=== PATIENT | female | born 1985 | race African-American/Black ===

== ENCOUNTER 2016-10-15 06:38 | Inpatient (IN) ==
[2016-10-15] MEDS ORDERED: BUTORPHANOL 2 MG/ML VIAL IV PRN (07:09)
[2016-10-15] MEDS ORDERED: ONDANSETRON 4 MG/2 ML VIAL IV PRN ×2 (07:09→10:13)
[2016-10-15] MEDS ORDERED: MEPERIDINE 50 MG/1 ML VIAL IV PRN (07:09)
[2016-10-15] MEDS ORDERED: CITRIC ACID/SODIUM CITRATE 30 ML UDCUP PO ONE (07:12)
[2016-10-15] MEDS ORDERED: LACTATED RINGERS 1,000 ML IV ONE (07:12)
[2016-10-15] MEDS ORDERED: fentaNYL 2 MCG/ROPIV 0.2% EPID 150 ML EPIDURAL SCH (07:12)
[2016-10-15] MEDS ORDERED: hydrOXYzine HCL 25 MG/1 ML VIAL IM PRN (07:12)
[2016-10-15] MEDS ORDERED: diphenhydrAMINE 50 MG/1 ML VIAL IV PRN ×2 (07:12)
[2016-10-15] MEDS ORDERED: ePHEDrine 50 MG/ML AMP IV PRN (07:12)
[2016-10-15] MEDS ORDERED: PROMETHAZINE 25 MG/1 ML VIAL IM ONE (07:12)
[2016-10-15] MEDS ORDERED: ONDANSETRON 4 MG/2 ML VIAL IV ONE (07:12)
[2016-10-15] MEDS ORDERED: FAMOTIDINE 20 MG/2 ML VIAL IV ONE (07:12)
[2016-10-15] MEDS ORDERED: OXYTOCIN/LR 20 UNIT/1,000 ML BAG IV SCH (07:30)
[2016-10-15] MEDS ORDERED: LACTATED RINGERS 1,000 ML IV SCH (07:30)
[2016-10-15 07:44] LABS: Basophils % 0.2 % (0.0-0.8); Eosinophils # 0.1 10*3/uL (0.0-0.87); Eosinophils % 0.8 % (0.00-10.9); Hematocrit 30.6 VOL% (35.7-47.0); Hemoglobin 9.4 GM/DL (12.0-16.0); Immature Granulocytes Absolute 0.13 #; Lymphocytes # 1.6 10*3/uL (1.4-4.0); Lymphocytes % 12.5 % (21.3-54.2); Mean Corpuscular HGB Conc 30.7 GM/DL (32-36); Mean Corpuscular Hemoglobin 29 PG (27-34); Mean Corpuscular Volume 95.3 FL (87-102); Mean Platelet Volume 11.6 FL (9.6-12.0); Monocytes # 0.9 10*3/uL (0.11-0.8); Monocytes % 7.3 % (1.7-12.7); NRBC # 0.02 10*3/uL; Neutrophils # 9.8 10*3/uL (1.4-7.4); Neutrophils % 78.2 % (38.7-73.9); Platelet Count 209 T/CUMM (130-400); Red Blood Count 3.21 MC/CUMM (3.8-5.5); Red Cell Distribution Width 14.1 % (9.3-17.3); White Blood Count 12.5 T/CUMM (4-12)
[2016-10-15 08:02] LABS: Alanine Aminotransferase 12 U/L (13-56); Albumin 2.8 G/DL (3.4-5.0); Alkaline Phosphatase 178 U/L (45-117); Aspartate Amino Transferase 22 U/L (0-37); Bilirubin,Total < 0.39 MG/DL (0.2-1.0); Blood Urea Nitrogen 8 MG/DL (7-18); Calcium 8.3 MG/DL (8.5-10.1); Glucose 94 MG/DL (74-106); Potassium 4.1 MMOL/L (3.5-5.1); Sodium 136 MMOL/L (136-145); Total Protein 6.7 G/DL (6.4-8.3); Uric Acid 5.7 MG/DL (2.6-6.0)
--- NOTE | 2016-10-15 10:06 | OB/GYN History & Physical ---
History of Present Illness Chief complaint: active labor, EDC is 10/23/2016 History of present illness: Ms. Michele is a 30 year old female 38+ weeks gestation who presents with active labor. Patient was examined and found to be 78 cm with a bulging bag of water at a -1-0 station. heart tones initially were well within normal limits category 1. Patient received an epidural anesthetic shortly after admission and subsequently was completely dilated. Patient was on laid back onto the bed after the epidural, the heart tones then demonstrated bradycardia, with accelerations. He was prepared for vaginal delivery with the possibility for section because of prolonged decelerations at for approximately 8 minutes. Was placed on her left side O2 was given her legs were placed in the stirrups. She was prepped for a vaginal delivery. Accelerations were noted occasionally as well as the [id number] and long-term variability was reassuring Home Medications Medication Instructions Recorded Confirmed Type No Known Home Medications [No 10/15/16 10/15/16 History Known Home Medications] Allergies Allergy/AdvReac Type Severity Reaction Status Date / Time No Known Allergies Allergy Verified 10/15/16 07:07 Medical,Surgical,& Family Hx - Medical History Reproductive: History of: Reproductive Problems (IUI ) - Surgical History Thoracic Surgeries: Surgical HX of;: Kidney (Renal Surgery) (DONATED AT KIDNEY, PT ONLY HAS ONE NOW) Reproductive Surgeries: Patient denies;: Gynecologic Surgery - Family History Family History: Reports;: Additional Family History (MOTHER WITH KIDNEY DISEASE) Denies;: Family Anesthesia Reaction, Family Cancer, Family Diabetes, Family Heart Disease, Family Hematology, Family Hypertension, Family Psychiatric Problems, Family Stroke - Social History Smoking Status: Never smoker Frequency of Alcohol Use: None 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 - Head Head exam: Present: normal inspection - Eye Eye exam: Present: EOMI Pupils: Present: VERENA - ENT ENT exam: Present: normal exam - Neck Neck exam: Present: normal inspection - Respiratory Respiratory exam: Present: clear to auscultation bilaterally - Breast Breasts: as per HPI Menstruation: as per HPI - Cardiovascular Cardiovascular exam: Present: regular rate and rhythm - GI/Abdominal GI/Abdominal exam: Present: normal bowel sounds - Extremities Exam Extremities exam: Present: normal inspection - Back Exam Back exam: Present: normal inspection - Neurological Exam Neurological exam: Present: alert, oriented X3 - Psychiatric Psychiatric exam: Present: normal mood, anxious - Skin Skin exam: Present: normal color Assessment and Plan (1) Active labor at term Status: Acute Assessment and plan: Completely dilated, active labor, anticipate Current Visit: Yes Results - Labs CBC & BMP: 10/15/16 07:35 10/15/16 07:35
--- NOTE | 2016-10-15 10:12 | Event Note ---
Patient admitted on October 15 in active labor and os 700 hours On admission cervix was 78 cm dilated bulging bag of water Epidural anesthetic was given IV fluids external monitoring O2 was also administered heart tones initially prior to her epidural was category 1 Patient was completely dilated at 932, and demonstrated bradycardia with notable beat to beat variability still existin Spontaneous rupture membranes clear fluid Vertex presentation, +2 station Stage II LML episiotomy Vacuum extraction times one Nuchal cord noted after delivery of the head Cord noted around the right arm and right leg in the body Cord gas was obtained, cord blood was obtained weight was 7 lbs. 12 oz., Apgars were 9 at 1 minute 9 at 5 minutes, delivery was 945, female Stage III Placenta was delivered manually 3 cord vessels noted Blood loss was less than 300 mL Episiotomy was repaired without any complications 2-0 Vicryl, 3-0 chromic to repair the episiotomy.
[2016-10-15] MEDS ORDERED: IBUPROFEN 800 MG TABLET PO PRN (10:13)
[2016-10-15] MEDS ORDERED: WITCH HAZEL PADS 100/JAR TOP PRN (10:13)
[2016-10-15] MEDS ORDERED: ACETAMINOPHEN 325 MG TABLET PO PRN (10:13)
[2016-10-15] MEDS ORDERED: BISACODYL 10 MG SUPP RECTAL PRN (10:13)
[2016-10-15] MEDS ORDERED: oxyCODONE/ACETAMINOPHEN 5-325 MG TABLET PO PRN ×2 (10:13)
[2016-10-15] MEDS ORDERED: MEASLES/MUMPS/RUBELLA VACCINE 0.5 ML VIAL SUBCUT ONE (10:13)
[2016-10-15] MEDS ORDERED: RHO(D) IMMUNE GLOBULIN 300 MCG SYRINGE IM ONE (10:13)
[2016-10-15] MEDS ORDERED: DIPH/TET/ACEL PERT BOOSTER VACCINE 0.5 ML VIAL IM ONE (10:13)
[2016-10-15] MEDS ORDERED: HYDROCORTISONE 2.5% RECTAL CREAM 30 GM TUBE TOP PRN (10:13)
[2016-10-15] MEDS ORDERED: OXYTOCIN/LR 20 UNIT/1,000 ML BAG IV ONE (10:13)
[2016-10-15] MEDS ORDERED: LANOLIN 50% CREAM 0.3 OZ TUBE TOP PRN (10:13)
[2016-10-15] MEDS ORDERED: BENZOCAINE 20%/MENTHOL 0.5% SPRAY 56 GM CAN TOP PRN (10:13)
[2016-10-15 10:30] LABS: Apearance,Urine CLEAR (Clear); Bacteria,Urine Occasional /HPF (Few); Bilirubin,Urine Negative (Negative); Blood, Urine Negative (Negative); Glucose,Urine (UA) Negative (Negative); Ketones,Urine Negative (Negative); Mucus,Urine Occasional /LPF (Occasional); Nitrite,Urine Negative (Negative); Protein,Urine 30 MG/DL; RBC,Urine <1 /HPF (0-4); Squamous Epithelial Cell,Urine Occasional /HPF (0-10); Urine Color Yellow (Yellow); Urine Specific Gravity 1.009 (1.001-1.035); Urine Urobilinogen < 2.0 EU/DL (0.2-1.0); WBC,Urine 1 /HPF (0-6)
[2016-10-15] MEDS: DOCUSATE SODIUM 100 MG CAPSULE PO SCH (21:09)
[2016-10-16 05:53] LABS: Basophils % 0.2 % (0.0-0.8); Eosinophils # 0.1 10*3/uL (0.0-0.87); Eosinophils % 0.5 % (0.00-10.9); Hematocrit 24.9 VOL% (35.7-47.0); Hemoglobin 7.6 GM/DL (12.0-16.0); Immature Granulocytes % 0.8 %; Lymphocytes # 2.4 10*3/uL (1.4-4.0); Lymphocytes % 19.5 % (21.3-54.2); Mean Corpuscular HGB Conc 30.5 GM/DL (32-36); Mean Corpuscular Hemoglobin 29 PG (27-34); Mean Corpuscular Volume 95.8 FL (87-102); Mean Platelet Volume 11.7 FL (9.6-12.0); Monocytes # 1.3 10*3/uL (0.11-0.8); Monocytes % 10.5 % (1.7-12.7); Neutrophils # 8.3 10*3/uL (1.4-7.4); Neutrophils % 68.5 % (38.7-73.9); Platelet Count 182 T/CUMM (130-400); Red Cell Distribution Width 14.1 % (9.3-17.3); White Blood Count 12.1 T/CUMM (4-12)
--- NOTE | 2016-10-16 08:04 | Progress Note ---
Assessment and Plan (1) Active labor at term Status: Acute Assessment and plan: Completely dilated, active labor, anticipate Current Visit: Yes Family Medicine PN Sub Interval history: Postop day #1 Patient blood count is slightly diminished, no evidence of shortness of breath chest pain or palpitations or dizziness. Bleeding is minimal Have discussed with the patient the need for a unit of packed RBCs secondary to her low blood count. Presently she is asymptomatic. We'll continue to observe this patient start her on iron therapy and Colace. If in fact does not relieve her symptoms we'll recommend transfusing. Wrist and benefits were thoroughly discussed with this patient she is in full agreement Exam (Progress Note) - Constitutional Vitals: Period Temp Pulse Resp BP Sys/Crews Pulse Ox Last 24 Hr 98 F-98.6 F 90-119 18-20 123-157/64-94 95-100 Results - Labs CBC & BMP: 10/16/16 05:39 10/15/16 07:35 Quality Measures - VTE Contraindication to Pharmacological VTE Prophylaxis: Clinical assessment deems Pt at low risk, no prophalaxis needed
[2016-10-16] MEDS: DOCUSATE SODIUM 100 MG CAPSULE PO SCH ×2 (08:45→20:30)
[2016-10-16] MEDS: FERROUS SULFATE 325 MG TABLET PO SCH ×3 (08:45→20:30)
--- NOTE | 2016-10-16 12:08 | Anesthesia ---
Anesthesia Post OP - Post Ansesthetic Evaluation Patient seen in post op: Yes Resp: within normal limits CV: within normal limits Mental: within normal limits Temp: within normal limits [id number]: within normal limits Nausea and Vomiting: within normal limits Pain: within normal limits
[2016-10-17 08:33] VITALS: BP 132/78
--- NOTE | 2016-10-17 09:41 | Discharge Summary ---
Hospital Course - Hospital Course Hospital Course: Ms. Michele presented to the labor department in active labor. She subsequently delivered a viable with no complications. She has followed a normal course and she has done well. Her vital signs and lab values are stable. She is voiding without difficulty. Her bleeding is minimal with no odor. She denies any pain or discomfort in her legs. She is bonding well with her . She will be discharged home with prescriptions for pain and follow- up appointment in our office. Specialty Discharge - Follow Up or Referrals Follow up with: Tristin Jorgensen MD [Physician] - 11/28/16 9:45 am Discharge Plan - Discharge Data Disposition: Disch To Home/Self Care Condition at Discharge: Stable Activity: resume usual activities as tolerated Contact your physician if you experience:: fever over 101, pain uncontrolled by pain medications - Discharge Medications New Acetamin/Codeine 300-30 Tab [Tylenol/Codeine #3] 2 tablet PO Q4H PRN #30 tablet PRN Reason: Pain Mild To Moderate (1-7) Ferrous Sulfate Tab [Feosol Original Tab] 325 mg PO TID #30 tablet Ibuprofen Tab [Motrin Tab] 800 mg PO Q6H PRN #30 tablet PRN Reason: Pain Moderate (4-7) - Follow Up or Referral Follow Up: Tristin Jorgensen MD [Physician] - 11/28/16 9:45 am - Forms/Instructions Instructions: Perineal Care (DC), Vaginal Delivery (DC), Bleeding (DC), Sitz Bath (DC) Exam - Constitutional Vitals: Period Temp Pulse Resp BP Sys/Crews Pulse Ox Last 24 Hr 97.8 F-98.9 F 92-104 18-20 116-139/65-89 95-100 General appearance: normal weight, no acute distress - Respiratory Respiratory exam: Present: clear to auscultation bilaterally - Cardiovascular Cardiovascular exam: Present: regular rate and rhythm - GI/Abdominal GI/Abdominal exam: Present: normal bowel sounds, soft - Extremities Exam Extremities exam: Present: normal inspection - Back Exam Back exam: Present: normal inspection - Neurological Exam Neurological exam: Present: alert, oriented X3 - Psychiatric Psychiatric exam: Present: normal affect, normal mood - Skin Skin exam: Present: normal color, warm DS: Provider Date of admission: 10/15/16 07:09 Primary care physician: . No PCP Attending physician on admission: Tristin Jorgensen MD Consults: 10/15/16 10:13 Consult to Orthotics Technician [CONS] Routine Consult Orthotics Technician: Breast Feeding Discharging clinician: Yolanda Felder CNM Expected date of discharge: 10/17/16
== END 2016-10-17 12:15 | disposition home or self-care (01) | DRG 775 ==
LOC: N.LDOUT 06:38 → N.LD 06:44 → N.OB 13:24
PROVIDERS: ADMIT Obstetrics & Gynecology; ATTEND Obstetrics & Gynecology

== ENCOUNTER 2018-02-26 12:45 | Inpatient (IN) ==
[2018-02-27] MEDS ORDERED: ONDANSETRON 4 MG/2 ML VIAL IV PRN (07:53)
[2018-02-27] MEDS ORDERED: LACTATED RINGERS 1,000 ML IV PRN (07:53)
[2018-02-27] MEDS ORDERED: LACTATED RINGERS 1,000 ML IV SCH (08:00)
[2018-02-27] MEDS ORDERED: hydrOXYzine HCL 25 MG/1 ML VIAL IM PRN (08:38)
[2018-02-27] MEDS ORDERED: diphenhydrAMINE 50 MG/1 ML VIAL IV PRN ×2 (08:38)
[2018-02-27] MEDS ORDERED: NALOXONE 0.4 MG/ML VIAL IV PRN (08:38)
[2018-02-27] MEDS ORDERED: ePHEDrine 50 MG/ML AMP IV PRN ×2 (08:38)
[2018-02-27] MEDS ORDERED: PROMETHAZINE 25 MG/1 ML VIAL IM ONE (08:38)
[2018-02-27] MEDS ORDERED: CITRIC ACID/SODIUM CITRATE 30 ML UDCUP PO ONE (08:38)
[2018-02-27] MEDS ORDERED: FAMOTIDINE 20 MG/2 ML VIAL IV ONE (08:38)
[2018-02-27 08:40] LABS: Basophils % 0.4 % (0.0-0.8); Eosinophils # 0.1 10*3/uL (0.0-0.87); Eosinophils % 1.2 % (0.00-10.9); Hematocrit 36.8 VOL% (35.7-47.0); Hemoglobin 11.7 GM/DL (12.0-16.0); Immature Granulocytes % 1.2 %; Immature Granulocytes Absolute 0.12 #; Lymphocytes # 2.5 10*3/uL (1.4-4.0); Lymphocytes % 24.3 % (21.3-54.2); Mean Corpuscular HGB Conc 31.8 GM/DL (32-36); Mean Corpuscular Hemoglobin 30 PG (27-34); Mean Corpuscular Volume 95.6 FL (87-102); Mean Platelet Volume 12.3 FL (9.6-12.0); Monocytes # 0.9 10*3/uL (0.11-0.8); Monocytes % 8.2 % (1.7-12.7); Neutrophils # 6.8 10*3/uL (1.4-7.4); Neutrophils % 64.7 % (38.7-73.9); Platelet Count 198 T/CUMM (130-400); Red Blood Count 3.85 MC/CUMM (3.8-5.5); Red Cell Distribution Width 13.4 % (9.3-17.3); White Blood Count 10.4 T/CUMM (4-12)
[2018-02-27] MEDS ORDERED: fentaNYL 2 MCG/ROPIV 0.2% EPID 100 ML EPIDURAL SCH (09:00)
[2018-02-27 09:07] LABS: Albumin 3.1 G/DL (3.4-5.0); Bilirubin,Total 0.4 MG/DL (0.2-1.0); Calcium 9.4 MG/DL (8.5-10.1); Osmolality,Calculated 264.2 MOS/KG (273-304); Potassium 4.1 MMOL/L (3.5-5.1); Total Protein 8.3 G/DL (6.4-8.3)
[2018-02-27 11:56] LABS: Apearance,Urine CLEAR (Clear); Bacteria,Urine Occasional /HPF (Few); Bilirubin,Urine Negative (Negative); Blood, Urine Small mg/dL (Negative); Glucose,Urine (UA) Negative (Negative); Ketones,Urine Negative (Negative); Mucus,Urine Occasional /LPF (Occasional); Nitrite,Urine Negative (Negative); Protein,Urine Negative; RBC,Urine 1 /HPF (0-4); Squamous Epithelial Cell,Urine Occasional /HPF (0-10); Urine Color Straw (Yellow); Urine Specific Gravity 1.004 (1.001-1.035); Urine Urobilinogen < 2.0 EU/DL (0.2-1.0); WBC,Urine <1 /HPF (0-6)
[2018-02-27] MEDS ORDERED: OXYTOCIN/LR 20 UNIT/1,000 ML BAG IV SCH (12:00)
[2018-02-27] MEDS ORDERED: LANOLIN 50% CREAM 0.3 OZ TUBE TOP PRN (15:27)
[2018-02-27] MEDS ORDERED: ACETAMINOPHEN 325 MG TABLET PO PRN (15:27)
[2018-02-27] MEDS ORDERED: IBUPROFEN 800 MG TABLET PO PRN (15:27)
[2018-02-27] MEDS ORDERED: ACETAMINOPHEN/CODEINE 300-30 MG TABLET PO PRN (15:27)
[2018-02-27] MEDS ORDERED: BISACODYL 10 MG SUPP RECTAL PRN (15:27)
[2018-02-27] MEDS ORDERED: BENZOCAINE 20%/MENTHOL 0.5% SPRAY 56 GM CAN TOP PRN (15:27)
[2018-02-27] MEDS ORDERED: WITCH HAZEL PADS 100/JAR TOP PRN (15:27)
[2018-02-27] MEDS ORDERED: HYDROCORTISONE 2.5% RECTAL CREAM 30 GM TUBE TOP PRN (15:27)
[2018-02-27] MEDS ORDERED: oxyCODONE/ACETAMINOPHEN 5-325 MG TABLET PO PRN ×2 (15:27)
[2018-02-27] MEDS ORDERED: RHO(D) IMMUNE GLOBULIN 300 MCG SYRINGE IM ONE (15:30)
[2018-02-27] MEDS ORDERED: MEASLES/MUMPS/RUBELLA VACCINE 0.5 ML VIAL SUBCUT ONE (15:30)
[2018-02-27] MEDS ORDERED: DIPH/TET/ACEL PERT BOOSTER VACCINE 0.5 ML VIAL IM ONE (15:30)
[2018-02-27] MEDS: DOCUSATE SODIUM 100 MG CAPSULE PO SCH (21:59)
[2018-02-28 08:13] LABS: Basophils % 0.3 % (0.0-0.8); Eosinophils # 0.1 10*3/uL (0.0-0.87); Eosinophils % 0.9 % (0.00-10.9); Hematocrit 30.7 VOL% (35.7-47.0); Immature Granulocytes % 0.7 %; Immature Granulocytes Absolute 0.08 #; Lymphocytes # 2.2 10*3/uL (1.4-4.0); Lymphocytes % 19.2 % (21.3-54.2); Mean Corpuscular HGB Conc 32.6 GM/DL (32-36); Mean Corpuscular Hemoglobin 31 PG (27-34); Mean Corpuscular Volume 95.6 FL (87-102); Mean Platelet Volume 13.1 FL (9.6-12.0); Monocytes # 1.2 10*3/uL (0.11-0.8); Monocytes % 10.2 % (1.7-12.7); Neutrophils % 68.7 % (38.7-73.9); Platelet Count 170 T/CUMM (130-400); Red Blood Count 3.21 MC/CUMM (3.8-5.5); Red Cell Distribution Width 13.3 % (9.3-17.3); White Blood Count 11.7 T/CUMM (4-12)
[2018-02-28] MEDS: DOCUSATE SODIUM 100 MG CAPSULE PO SCH (10:44)
[2018-02-28 15:52] VITALS: BP 112/78
== END 2018-02-28 19:05 | disposition home or self-care (01) | DRG 775 ==
LOC: N.LDOUT 12:45 → N.LD 12:46 → N.OB 02-27 20:05
PROVIDERS: ADMIT Obstetrics & Gynecology; ATTEND Obstetrics & Gynecology

== ENCOUNTER 2021-10-15 04:31 | Inpatient (IN) ==
[2021-10-15] MEDS ORDERED: miSOPROStoL 200 MCG TABLET RECTAL PRN (05:03)
[2021-10-15] MEDS ORDERED: METHYLERGONOVINE 0.2 MG/1 ML AMP IM PRN (05:03)
[2021-10-15] MEDS ORDERED: OXYTOCIN/LR 20 UNIT/1,000 ML BAG IV ONE ×2 (05:03→13:39)
[2021-10-15] MEDS ORDERED: CARBOPROST TROMETHAMINE 250 MCG/ML AMP IM PRN (05:03)
[2021-10-15] MEDS ORDERED: TRANEXAMIC ACID 1,000 MG in SODIUM CHLORIDE 0.9% 100 ML IV PRN (05:03)
[2021-10-15] MEDS ORDERED: LACTATED RINGERS 250 ML IV ONE (05:03)
[2021-10-15] MEDS ORDERED: ONDANSETRON 4 MG/2 ML VIAL IV PRN (05:03)
[2021-10-15] MEDS ORDERED: LACTATED RINGERS 500 ML IV PRN (05:03)
[2021-10-15] MEDS ORDERED: ePHEDrine 50 MG/ML VIAL IV PRN (05:28)
[2021-10-15] MEDS ORDERED: hydrOXYzine HCL 25 MG/1 ML VIAL IM PRN (05:28)
[2021-10-15] MEDS ORDERED: NALOXONE 0.4 MG/ML VIAL IV PRN (05:28)
[2021-10-15] MEDS ORDERED: ONDANSETRON 4 MG/2 ML VIAL IV ONE (05:28)
[2021-10-15] MEDS ORDERED: LACTATED RINGERS 250 ML IV PRN (05:28)
[2021-10-15] MEDS ORDERED: PROMETHAZINE 25 MG/1 ML VIAL IM ONE (05:28)
[2021-10-15] MEDS ORDERED: diphenhydrAMINE 50 MG/1 ML VIAL IV PRN ×2 (05:28)
[2021-10-15] MEDS ORDERED: LACTATED RINGERS 1,000 ML IV SCH ×3 (05:30→06:30)
[2021-10-15] MEDS ORDERED: fentaNYL 2 MCG/ROPIV 0.2% EPID 100 ML EPIDURAL SCH (05:30)
[2021-10-15 05:40] LABS: Bacteria,Urine Occasional /HPF (Few); Mucus,Urine Occasional /LPF (Occasional); RBC,Urine 1 /HPF (0-4); Squamous Epithelial Cell,Urine Few /HPF (0-10)
[2021-10-15 05:41] LABS: Protein,Urine >=300 mg/dL (Negative); Urine Appearance Clear (Clear); Urine Color Yellow (Yellow)
[2021-10-15 05:41] LABS: Basophils % 0.4 % (0.0-0.8); Eosinophils # 0.1 10*3/uL (0.0-0.87); Eosinophils % 0.8 % (0.00-10.9); Hematocrit 31.3 VOL% (35.7-47.0); Hemoglobin 9.4 GM/DL (12.0-16.0); Immature Granulocytes Absolute 0.29 #; Lymphocytes # 2.2 10*3/uL (1.4-4.0); Lymphocytes % 22.4 % (21.3-54.2); Mean Corpuscular Volume 82.6 FL (87-102); Mean Platelet Volume 12.5 FL (9.6-12.0); Monocytes % 9.3 % (1.7-12.7); NRBC # 0.04 10*3/uL; Neutrophils % 64.1 % (38.7-73.9); Platelet Count 245 T/CUMM (130-400); Red Blood Count 3.79 MC/CUMM (3.8-5.5); White Blood Count 9.6 T/CUMM (4-12)
[2021-10-15 05:42] LABS: Bilirubin,Urine Negative (Negative); Blood, Urine Trace mg/dL (Negative); Glucose,Urine (UA) Negative (Negative); Ketones,Urine Negative (Negative); Nitrite,Urine Negative (Negative); Urine Urobilinogen 0.2 eU/dL (<2.0)
[2021-10-15 05:58] LABS: Alanine Aminotransferase 16 U/L (13-56); Albumin 2.6 G/DL (3.4-5.0); Alkaline Phosphatase 218 U/L (45-117); Aspartate Amino Transferase 21 U/L (0-37); Bilirubin,Total < 0.39 MG/DL (0.20-1.00); Blood Urea Nitrogen 10 MG/DL (7-18); Calcium 8.9 MG/DL (8.5-10.1); Carbon Dioxide 20 MMOL/L (21-32); Estimated Glom Filtration Rate 100 ML/MIN; Glucose 92 MG/DL (74-106); Sodium 136 MMOL/L (136-145); Total Protein 7.7 G/DL (6.4-8.2)
[2021-10-15] MEDS ORDERED: FAMOTIDINE 20 MG/2 ML VIAL IV ONE (06:22)
[2021-10-15] MEDS ORDERED: LACTATED RINGERS 1,000 ML IV ONE (06:22)
[2021-10-15] MEDS ORDERED: LACTATED RINGERS 500 ML IV ONE (06:22)
[2021-10-15] MEDS ORDERED: CITRIC ACID/SODIUM CITRATE 30 ML UDCUP PO ONE (06:22)
[2021-10-15 06:29] LABS: HIV Antigen/Antibody Result Nonreactive (Nonreactive)
[2021-10-15] MEDS ORDERED: OXYTOCIN/LR 20 UNIT/1,000 ML BAG IV SCH (07:00)
[2021-10-15 07:06] LABS: Hepatitis B Surface Ag Quant < 0.10 Index; Hepatitis B Surface Ag Result Non-Reactive (NonReactive)
[2021-10-15 08:07] LABS: Bacteria,Urine Occasional /HPF (Few); RBC,Urine 1 /HPF (0-4); Squamous Epithelial Cell,Urine Occasional /HPF (0-10)
[2021-10-15 08:08] LABS: Bilirubin,Urine Negative (Negative); Blood, Urine Trace mg/dL (Negative); Glucose,Urine (UA) Negative (Negative); Ketones,Urine Negative (Negative); Nitrite,Urine Negative (Negative); Protein,Urine 100 mg/dL (Negative); Urine Appearance Clear (Clear); Urine Color Yellow (Yellow); Urine Specific Gravity 1.015 (1.001-1.035); Urine Urobilinogen 0.2 eU/dL (<2.0)
[2021-10-15] MEDS ORDERED: SODIUM CHLORIDE 0.9% 0 ML IV ONE (08:39)
[2021-10-15] MEDS ORDERED: TRANEXAMIC ACID 1,000 MG/10 ML VIAL ONE (08:39)
[2021-10-15] MEDS ORDERED: miSOPROStoL 200 MCG TABLET ONE (08:39)
[2021-10-15] MEDS ORDERED: METHYLERGONOVINE 0.2 MG/1 ML AMP ONE (08:40)
[2021-10-15] MEDS ORDERED: CARBOPROST TROMETHAMINE 250 MCG/ML AMP IM ONE (08:40)
[2021-10-15 09:48] LABS: Cord Venous Blood HCO3 19.7 MMOL/L; Cord Venous Blood PCO2 55.6 MMHG; Cord Venous Blood PO2 < 17
[2021-10-15] MEDS ORDERED: RHO(D) IMMUNE GLOBULIN 300 MCG SYRINGE IM ONE (13:39)
[2021-10-15] MEDS ORDERED: ACETAMINOPHEN 325 MG TABLET PO PRN (13:39)
[2021-10-15] MEDS ORDERED: oxyCODONE/ACETAMINOPHEN 5-325 MG TABLET PO PRN ×2 (13:39)
[2021-10-15] MEDS ORDERED: LANOLIN 50% CREAM 0.3 OZ TUBE TOP PRN (13:39)
[2021-10-15] MEDS ORDERED: BENZOCAINE 20%/MENTHOL 0.5% SPRAY 56 GM CAN TOP PRN (13:39)
[2021-10-15] MEDS ORDERED: DIPH/TET/ACEL PERT BOOSTER VACCINE 0.5 ML VIAL IM ONE (13:39)
[2021-10-15] MEDS ORDERED: WITCH HAZEL PADS 100/JAR TOP PRN (13:39)
[2021-10-15] MEDS ORDERED: BISACODYL 10 MG SUPP RECTAL PRN (13:39)
[2021-10-15] MEDS ORDERED: MEASLES/MUMPS/RUBELLA VACCINE 0.5 ML VIAL SUBCUT ONE (13:39)
[2021-10-15] MEDS ORDERED: IBUPROFEN 800 MG TABLET PO PRN (13:39)
[2021-10-15] MEDS ORDERED: HYDROCORTISONE 2.5% RECTAL CREAM 30 GM TUBE TOP PRN (13:39)
[2021-10-15] MEDS: DOCUSATE SODIUM 100 MG CAPSULE PO SCH (21:23)
[2021-10-16 04:48] LABS: Basophils % 0.4 % (0.0-0.8); Eosinophils # 0.1 10*3/uL (0.0-0.87); Eosinophils % 0.9 % (0.00-10.9); Hematocrit 27.3 VOL% (35.7-47.0); Hemoglobin 8.1 GM/DL (12.0-16.0); Immature Granulocytes % 1.5 %; Immature Granulocytes Absolute 0.15 #; Lymphocytes # 2.3 10*3/uL (1.4-4.0); Lymphocytes % 22.7 % (21.3-54.2); Mean Corpuscular HGB Conc 29.7 GM/DL (32-36); Mean Corpuscular Volume 83.7 FL (87-102); Mean Platelet Volume 12.4 FL (9.6-12.0); NRBC # 0.02 10*3/uL; Neutrophils % 65.5 % (38.7-73.9); Platelet Count 191 T/CUMM (130-400); Red Blood Count 3.26 MC/CUMM (3.8-5.5); Red Cell Distribution Width 15.9 % (9.3-17.3); White Blood Count 10.2 T/CUMM (4-12)
[2021-10-16] MEDS: DOCUSATE SODIUM 100 MG CAPSULE PO SCH ×2 (10:09→21:21)
[2021-10-17 08:52] VITALS: BP 130/92
[2021-10-17] MEDS ORDERED: FERROUS SULFATE 325 MG TABLET PO SCH (09:00)
[2021-10-17] MEDS: DOCUSATE SODIUM 100 MG CAPSULE PO SCH (10:42)
== END 2021-10-17 13:50 | disposition home or self-care (01) | DRG 807 ==
LOC: N.LD 04:31 → N.OB 13:01
PROVIDERS: ADMIT Obstetrics & Gynecology; ATTEND Obstetrics & Gynecology